=== PATIENT | female | born 1995 | race African-American/Black ===

== ENCOUNTER 2025-03-08 10:39 | Emergency (ER) | payer OTHER ==
[~2025-03-08] VITALS: Ht 170.2 cm; Wt 81.6 kg
[2025-03-08 10:52] VITALS: TEMP 97.7
[2025-03-08 11:03] LABS: BASOPHILS % 0.3 % (0.0-1.0); EOSINOPHILS % 0.4 % (0.0-6.0); LYMPHOCYTES % 32.5 % (18.0-39.1); MONOCYTES % 9.3 % (4.4-11.3); NEUTROPHILS % 57.4 % (38.7-80.0); RED CELL DISTRIBUTION WIDTH 13.1 % (11.7-14.4)
[2025-03-08 11:24] LABS: EST GLOMERULAR FILTRATION RATE 86.0 ML/MIN (>=60)
[2025-03-08 11:45] VITALS: PULSE 72; RESP 19
[2025-03-08] MEDS: ONDANSETRON HCL INJ 2MG/ML 2ML 2 MG/ML VIAL IV STA (11:53)
[2025-03-08] MEDS: FENTANYL CITRATE/PF 100MCG/2 ML INJ IV PRN (11:54)
[2025-03-08] MEDS: SODIUM CHLORIDE 0.9% 1000ML 1,000 ML IV SCH (11:54)
[2025-03-08] MEDS ORDERED: HYDROCODON-ACE1 EA12 PO (12:38)
[2025-03-08] MEDS ORDERED: ONDANSETRON ODT4 MG PO (12:38)
[2025-03-08 13:24] VITALS: BP 144/89; RESP 17; O2SAT 100
== END 2025-03-08 13:20 | disposition home or self-care (01) ==
LOC: ER 10:54
DX: R11.2 Nausea with vomiting, unspecified (principal); K80.20 Calculus of gallbladder without cholecystitis without obstruction; R10.11 Right upper quadrant pain
CPT/HCPCS: 36415; 76705; 80053; 83690; 84702; 85025; 99284; J2405; J2470; J3010; J7030